=== PATIENT | female | born 1985 | race Caucasian/White ===

== ENCOUNTER 2018-06-05 16:42 | Emergency (ER) | payer SELFPAY ==
[2018-06-05] MEDS ORDERED: NORMAL SALINE 1000 ML 1,000 ML IV ONE (17:17)
[2018-06-05] MEDS ORDERED: IBUPROFEN 600 MG TABLET PO ONE (17:17)
[2018-06-05] MEDS ORDERED: ONDANSETRON 4 MG TAB.RAPDIS PO ONE (17:17)
--- NOTE | 2018-06-05 17:19 | ER Document Report ---
ED Medical Screen (RME) - General Chief Complaint: Nausea/Vomiting Stated Complaint: FEVER Time Seen by Provider: 06/05/18 17:13 Notes: The patient is a 33-year-old female, past medical history prior kidney stones and kidney infections, presents with several days of worsening right flank pain and subjective fevers. She took Tylenol 1 hour prior to arrival. Also is having nausea and vomiting earlier, but this has improved. PE: Tachycardia, right CVA tenderness, suprapubic tenderness (abdominal exam limited in RME chair) I have greeted and performed a rapid initial assessment of this patient. A comprehensive ED assessment and evaluation of the patient, analysis of test results and completion of the medical decision making process will be conducted by additional ED providers. TRAVEL OUTSIDE OF THE [place] IN LAST 30 DAYS: No - Related Data Allergies/Adverse Reactions: iron Allergy (Verified 06/05/18 16:43) Sulfa (Sulfonamide Antibiotics) Allergy (Verified 06/05/18 16:43) tamsulosin [From Flomax] Allergy (Verified 06/05/18 17:16) Past Medical History - Social History Chew tobacco use (# tins/day): No Frequency of alcohol use: None Drug Abuse: None Pulmonary Medical History: Reports: Hx Bronchitis Renal/ Medical History: Reports: Hx Kidney Stones. Denies: Hx Peritoneal Dialysis Past Surgical History: Reports: Hx Abdominal Surgery - EGD X2, Hx Section - x2, Hx Gynecologic Surgery - lap w/LEEP proced, Hx Tubal Ligation Physical Exam - Vital signs Vitals: Temp Pulse Resp BP Pulse Ox 99.8 F 103 H 16 127/68 H 99 06/05/18 16:45 06/05/18 16:45 06/05/18 16:45 06/05/18 16:45 06/05/18 16:45 Course - Vital Signs Vital signs: Temp Pulse Resp BP Pulse Ox 99.8 F 103 H 16 127/68 H 99 06/05/18 16:45 06/05/18 16:45 06/05/18 16:45 06/05/18 16:45 06/05/18 16:45
[2018-06-05 18:25] LABS: ABSOLUTE LYMPHOCYTES (AUTO) 0.7 10^3/uL (0.5-4.7); ABSOLUTE MONOCYTES (AUTO) 1.2 10^3/uL (0.1-1.4); BASOPHILS % (AUTO) 0.1 % (0-2); EOSINOPHILS % (AUTO) 0.2 % (0-6); HEMATOCRIT 35.2 % (36.0-47.0); HEMOGLOBIN 11.9 g/dL (12.0-15.5); LYMPHOCYTES % (AUTO) 5.3 % (13-45); MEAN CORPUSCULAR HEMOGLOBIN 27.3 pg (27.0-33.4); MEAN CORPUSCULAR HGB CONC 33.8 g/dL (32.0-36.0); MEAN CORPUSCULAR VOLUME 81 fl (80-97); MONOCYTES % (AUTO) 9.2 % (3-13); PLATELET COUNT 303 10^3/uL (150-450); RED BLOOD COUNT 4.36 10^6/uL (3.72-5.28); RED CELL DISTRIBUTION WIDTH 14.2 % (11.5-14.0); SEGMENTED NEUTROPHILS % (AUTO) 85.2 % (42-78); TOTAL CELLS COUNTED % (AUTO) 100 %
[2018-06-05 18:43] LABS: ALANINE AMINOTRANSFERASE 42 U/L (9-52); ALBUMIN 3.7 g/dL (3.5-5.0); ALKALINE PHOSPHATASE 114 U/L (38-126); ANION GAP 13 (5-19); ASPARTATE AMINO TRANSFERASE 39 U/L (14-36); BILIRUBIN,DIRECT 0.5 mg/dL (0.0-0.4); BILIRUBIN,TOTAL 0.8 mg/dL (0.2-1.3); BLOOD UREA NITROGEN 9 mg/dL (7-20); CALCIUM 9.2 mg/dL (8.4-10.2); CARBON DIOXIDE 26 mmol/L (22-30); CHLORIDE 104 mmol/L (98-107); GLUCOSE 110 mg/dL (75-110); LIPASE 21.6 U/L (23-300); POTASSIUM 3.8 mmol/L (3.6-5.0); TOTAL PROTEIN 6.6 g/dL (6.3-8.2)
[2018-06-05 18:48] LABS: APPEARANCE,URINE CLOUDY; BILIRUBIN,URINE NEGATIVE (NEGATIVE); COLOR,URINE YELLOW; GLUCOSE, URINE NEGATIVE (NEGATIVE); KETONES,URINE TRACE mg/dL (NEGATIVE); LEUKOCYTE ESTERASE,URINE LARGE (NEGATIVE); NITRITE,URINE POSITIVE (NEGATIVE); PROTEIN,URINE 100 mg/dL (NEGATIVE); URINE SPECIFIC GRAVITY 1.018; UROBILINOGEN,URINE NEGATIVE mg/dL (<2.0)
[2018-06-05] MEDS ORDERED: CEFTRIAXONE 1 GM/D5W RTU 1 GM/50 ML RTUPB IV ONE (19:09)
--- NOTE | 2018-06-05 19:14 | ER Document Report ---
ED General - General Chief Complaint: Nausea/Vomiting Stated Complaint: FEVER Time Seen by Provider: 06/05/18 17:13 Mode of Arrival: Ambulatory Information source: Patient, Relative Notes: 33-year-old female who with endometriosis, Navarro's esophagus, kidney stones presents with complaint of 1 week of right low back pain and 3 days of right flank pain. Patient describes the pain as aching, constant and not relieved with Tylenol. Patient denies dysuria but states that her urine has been foul- smelling and dark. Her last kidney stone was approximately 2 years ago. Patient has had a fever, nausea at home. She reports a T-max of 101. Patient does not currently have a primary care physician because she just moved to the area. TRAVEL OUTSIDE OF THE [place] IN LAST 30 DAYS: No - HPI Onset: Last week Onset/Duration: Gradual, Persistent, Worse Quality of pain: Achy, Throbbing Severity: Moderate Associated symptoms: Body/muscle aches, Fever, Nausea Exacerbated by: Denies Relieved by: Denies Similar symptoms previously: Yes Recently seen / treated by doctor: No - Related Data Allergies/Adverse Reactions: iron Allergy (Verified 06/05/18 16:43) Sulfa (Sulfonamide Antibiotics) Allergy (Verified 06/05/18 16:43) tamsulosin [From Flomax] Allergy (Verified 06/05/18 17:16) Past Medical History - General Information source: Patient, Office - Social History Smoking Status: Never Smoker Chew tobacco use (# tins/day): No Frequency of alcohol use: None Drug Abuse: None Lives with: Family Family History: Reviewed & Not Pertinent Patient has suicidal ideation: No Patient has homicidal ideation: No Pulmonary Medical History: Reports: Hx Bronchitis Renal/ Medical History: Reports: Hx Kidney Stones. Denies: Hx Peritoneal Dialysis Past Surgical History: Reports: Hx Abdominal Surgery - EGD X2, Hx Section - x2, Hx Gynecologic Surgery - lap w/LEEP proced, Hx Tubal Ligation Review of Systems - Review of Systems Constitutional: Fever, Malaise EENT: No symptoms reported Cardiovascular: denies: Chest pain, Palpitations Respiratory: denies: Short of breath Gastrointestinal: Abdominal pain, Nausea, Constipation. denies: Vomiting Genitourinary: Flank pain, Hematuria Female Genitourinary: Last menstrual period - 2014 Musculoskeletal: Back pain Skin: denies: Rash Hematologic/Lymphatic: No symptoms reported Neurological/Psychological: denies: Headaches -: Yes All other systems reviewed and negative Physical Exam - Vital signs Vitals: Temp Pulse Resp BP Pulse Ox 99.8 F 103 H 16 127/68 H 99 06/05/18 16:45 06/05/18 16:45 06/05/18 16:45 06/05/18 16:45 06/05/18 16:45 - Notes Notes: PHYSICAL EXAMINATION: GENERAL: Well-appearing, well-nourished and in no acute distress. HEAD: Atraumatic, normocephalic. EYES: Pupils equal round and reactive to light, extraocular movements intact, conjunctiva are normal. ENT: Nares patent, oropharynx clear without exudates. Moist mucous membranes. NECK: Normal range of motion, supple without lymphadenopathy LUNGS: Breath sounds clear to auscultation bilaterally and equal. No wheezes rales or rhonchi. HEART: Regular rate and rhythm without murmurs ABDOMEN: Soft, nontender, nondistended abdomen. No guarding, no rebound. No masses appreciated. Female : deferred Musculoskeletal: Normal range of motion, no pitting or edema. No cyanosis. Right CVA tenderness NEUROLOGICAL: Cranial nerves grossly intact. Normal speech, normal gait. Normal sensory, motor exams PSYCH: Normal mood, normal affect. SKIN: Warm, Dry, normal turgor, no rashes or lesions noted. Course - Re-evaluation Re-evalutation: Laboratory 06/05/18 06/05/18 06/05/18 17:40 18:12 18:12 WBC 13.0 H RBC 4.36 Hgb 11.9 L Hct 35.2 L MCV 81 MCH 27.3 MCHC 33.8 RDW 14.2 H Plt Count 303 Seg Neutrophils % 85.2 H Lymphocytes % 5.3 L Monocytes % 9.2 Eosinophils % 0.2 Basophils % 0.1 Absolute Neutrophils 11.0 H Absolute Lymphocytes 0.7 Absolute Monocytes 1.2 Absolute Eosinophils 0.0 Absolute Basophils 0.0 Sodium Potassium Chloride Carbon Dioxide Anion Gap BUN Creatinine Est GFR ( Amer) Est GFR (Non-Af Amer) Glucose Calcium Total Bilirubin Direct Bilirubin Neonat Total Bilirubin Neonat Direct Bilirubin Neonat Indirect Bili AST ALT Alkaline Phosphatase Total Protein Albumin Lipase Serum HCG, Qual NEGATIVE Urine Color YELLOW Urine Appearance CLOUDY Urine pH 5.0 Ur Specific [place] 1.018 Urine Protein 100 H Urine Glucose (UA) NEGATIVE Urine Ketones TRACE H Urine Blood NEGATIVE Urine Nitrite POSITIVE H Urine Bilirubin NEGATIVE Urine Urobilinogen NEGATIVE Ur Leukocyte Esterase LARGE H Urine WBC (Auto) >182 Urine RBC (Auto) 12 Urine Bacteria (Auto) 3+ Urine WBC Clumps MANY Squamous Epi Cells Auto 9 Urine Mucus (Auto) MOD Urine Ascorbic Acid 40 H 06/05/18 18:12 WBC RBC Hgb Hct MCV MCH MCHC RDW Plt Count Seg Neutrophils % Lymphocytes % Monocytes % Eosinophils % Basophils % Absolute Neutrophils Absolute Lymphocytes Absolute Monocytes Absolute Eosinophils Absolute Basophils Sodium 143.0 Potassium 3.8 Chloride 104 Carbon Dioxide 26 Anion Gap 13 BUN 9 Creatinine 0.71 Est GFR ( Amer) > 60 Est GFR (Non-Af Amer) > 60 Glucose 110 Calcium 9.2 Total Bilirubin 0.8 Direct Bilirubin 0.5 H Neonat Total Bilirubin Not Reportable Neonat Direct Bilirubin Not Reportable Neonat Indirect Bili Not Reportable AST 39 H ALT 42 Alkaline Phosphatase 114 Total Protein 6.6 Albumin 3.7 Lipase 21.6 L Serum HCG, Qual Urine Color Urine Appearance Urine pH Ur Specific [place] Urine Protein Urine Glucose (UA) Urine Ketones Urine Blood Urine Nitrite Urine Bilirubin Urine Urobilinogen Ur Leukocyte Esterase Urine WBC (Auto) Urine RBC (Auto) Urine Bacteria (Auto) Urine WBC Clumps Squamous Epi Cells Auto Urine Mucus (Auto) Urine Ascorbic Acid 06/05/18 22:55 33-year-old female who with endometriosis, Navarro's esophagus, kidney stones presents with complaint of 1 week of right low back pain and 3 days of right flank pain. Patient describes the pain as aching, constant and not relieved with Tylenol. Patient denies dysuria but states that her urine has been foul- smelling and dark. Her last kidney stone was approximately 2 years ago. Patient has had a fever, nausea at home. She reports a T-max of 101. Patient does not currently have a primary care physician because she just moved to the area. Patient was seen by myself upon arrival. Vital signs were reviewed. Patient is afebrile, normotensive and not hypoxic. Patient does not appear toxic or dehydrated. They are in no acute distress. Previous medical records and nursing notes reviewed. Significant findings include urinalysis significant for urinary tract infection. Patient received IV Rocephin during her ED course. Patient will be discharged home with Nabila and Dariafran. Patient provided the opportunity to ask questions, and express concerns. Discharge instructions discussed. Patient is agreeable with discharge home. Return indications explained and discussed with the patient who displays understanding. Patient encouraged to return to the emergency department immediately with any concerns. 06/05/18 22:56 - Vital Signs Vital signs: Temp Pulse Resp BP Pulse Ox 100.0 F 85 16 120/58 L 98 06/05/18 21:23 06/05/18 21:23 06/05/18 21:23 06/05/18 21:23 06/05/18 21:23 - Laboratory Result Diagrams: 06/05/18 18:12 06/05/18 18:12 Laboratory results interpreted by me: 06/05/18 06/05/18 06/05/18 17:40 18:12 18:12 WBC 13.0 H Hgb 11.9 L Hct 35.2 L RDW 14.2 H Seg Neutrophils % 85.2 H Lymphocytes % 5.3 L Absolute Neutrophils 11.0 H Direct Bilirubin 0.5 H AST 39 H Lipase 21.6 L Urine Protein 100 H Urine Ketones TRACE H Urine Nitrite POSITIVE H Ur Leukocyte Esterase LARGE H Urine Ascorbic Acid 40 H Discharge - Discharge Clinical Impression: Flank pain UTI (urinary tract infection) Qualifiers: Urinary tract infection type: site unspecified Hematuria presence: without hematuria Qualified Code(s): N39.0 - Urinary tract infection, site not specified Condition: Good Disposition: HOME, SELF-CARE Instructions: Urinary Tract Infection ([facility]) Additional Instructions: Follow up with your physician tomorrow for further care or return to the ED IMMEDIATELY if symptoms worsen or new concerns occur. If you cannot afford to follow up with your primary care physician a list of low cost clinics have been provided at the end of your discharge papers as well. Prescriptions: Ciprofloxacin HCl [Cipro 500 mg Tablet] 500 mg PO BID #10 tablet Ondansetron [Zofran Odt 4 mg Tablet] 1 - 2 tab PO Q4H PRN #15 tab.rapdis PRN Reason: For Nausea/Vomiting
[2018-06-05] MEDS ORDERED: CEFTRIAXONE INJ 1000 MG VIAL ONE (20:26)
[2018-06-05] MEDS ORDERED: CEFTRIAXONE INJ 1000 MG VIAL IV ONE (20:28)
[2018-06-05 21:26] VITALS: BP 120/58
== END 2018-06-05 21:23 | disposition home or self-care (01) ==
LOC: ER 16:42
DX: N39.0 Urinary tract infection, site not specified (principal); R11.2 Nausea with vomiting, unspecified; R10.9 Unspecified abdominal pain; R50.9 Fever, unspecified; Z88.2 Allergy status to sulfonamides; Z87.442 Personal history of urinary calculi; Z98.51 Tubal ligation status
CPT/HCPCS: 99284; 96361; 96365; 36415; 83690; 84703; 85025; 80053; 81001; S0119; J0696; J7030

== ENCOUNTER 2019-03-08 09:13 | Day surgery (SDC) | payer OTHER ==
[2019-03-07 10:43] LABS: HEMATOCRIT 39.4 % (36.0-47.0); HEMOGLOBIN 13.3 g/dL (12.0-15.5); MEAN CORPUSCULAR HEMOGLOBIN 27.1 pg (27.0-33.4); MEAN CORPUSCULAR HGB CONC 33.8 g/dL (32.0-36.0); MEAN CORPUSCULAR VOLUME 80 fl (80-97); PLATELET COUNT 276 10^3/uL (150-450); RED BLOOD COUNT 4.91 10^6/uL (3.72-5.28); RED CELL DISTRIBUTION WIDTH 13.6 % (11.5-14.0); WHITE BLOOD COUNT 7.8 10^3/uL (4.0-10.5)
[2019-03-07 11:08] LABS: APPEARANCE,URINE CLEAR; BILIRUBIN,URINE NEGATIVE (NEGATIVE); COLOR,URINE STRAW; GLUCOSE, URINE NEGATIVE (NEGATIVE); KETONES,URINE NEGATIVE (NEGATIVE); LEUKOCYTE ESTERASE,URINE NEGATIVE (NEGATIVE); NITRITE,URINE NEGATIVE (NEGATIVE); PROTEIN,URINE NEGATIVE (NEGATIVE); URINE SPECIFIC GRAVITY 1.006; UROBILINOGEN,URINE NEGATIVE mg/dL (<2.0)
[2019-03-08] MEDS ORDERED: FENTANYL CITRATE INJ/PF 100 MCG/2 ML AMPUL ONE (11:04)
[2019-03-08] MEDS ORDERED: MIDAZOLAM 2 MG/2 ML INJ ONE (11:05)
[2019-03-08] MEDS ORDERED: ACETAMINOPHEN 1,000 MG/100 ML RTUPB IV ONE (11:05)
[2019-03-08] MEDS ORDERED: PROPOFOL INJ 200 MG/20 ML VIAL IV ONE (11:05)
[2019-03-08] MEDS ORDERED: KETOROLAC TROMETHAMINE INJ/PF 30 MG/1 ML SDV IV PRN (11:46)
[2019-03-08] MEDS ORDERED: IBUPROFEN 800 MG TABLET PO PRN (11:46)
[2019-03-08] MEDS ORDERED: RINGERS SOLUTION,LACTATED 1,000 ML IV PRN (11:46)
[2019-03-08] MEDS ORDERED: OXYCODONE-ACETAMINOPHEN 5-325 MG TABLET PO PRN ×2 (11:46)
--- NOTE | 2019-03-08 11:49 | Operative Report ---
Operative Report DATE OF SURGERY: 03/08/19 PREOPERATIVE DIAGNOSIS: Patient has a stenotic cervix and a retained IUD with no visible string. POSTOPERATIVE DIAGNOSIS: Same OPERATION: Cervical dilatation and IUD removal SURGEON: BELKIS MAYFIELD ANESTHESIA: GA TISSUE REMOVED OR ALTERED: Cervix and IUD COMPLICATIONS: None ESTIMATED BLOOD LOSS: None INTRAOPERATIVE FINDINGS: The IUD was in the uterine cavity with the strings bent upwards towards the fundus PROCEDURE: Procedure patient was taken the OR and placed in supine position. General anesthesia was induced. She is placed in dorsolithotomy position using Marcus stirrups. Perineum and vagina were prepared and draped in sterile fashion. A weighted speculum was placed in the vagina and the anterior lip cervix was grasped with a tenaculum. The cervix was dilated enough to allow a stone polyp forceps to be placed in the IUD was removed. The strings were bent in half and directed up towards the fundus of the uterus. At the end of the case all instruments were removed she is brought back from anesthesia and taken to recovery room in stable condition.
--- NOTE | 2019-03-08 11:51 | Discharge Summary ---
Discharge Summary (SDC) - Discharge Final Diagnosis: Strings lost IUD retained and uterus Date of Surgery: 03/08/19 Discharge Date: 03/08/19 Condition: Good Discharge Diet: Regular Discharge Activity: Activity As Tolerated Report the Following to Your Physician Immediately: Fever over 101 Degrees
[2019-03-08] MEDS ORDERED: ONDANSETRON HCL INJ/PF 4 MG/2 ML SDV IV PRN (12:13)
[2019-03-08] MEDS ORDERED: PROMETHAZINE HCL INJ 25 MG/1 ML VIAL IV PRN (12:13)
[2019-03-08] MEDS ORDERED: FENTANYL CITRATE INJ/PF 100 MCG/2 ML AMPUL IV PRN ×3 (12:13)
[2019-03-08] MEDS ORDERED: DIPHENHYDRAMINE HCL 50 MG/ML VIAL IV PRN (12:13)
[2019-03-08 13:10] VITALS: BP 120/76
[2019-03-08] MEDS ORDERED: SUCCINYLCHOLINE CHLORIDE INJ 200 MG/10 ML VIAL ONE (13:52)
== END 2019-03-08 13:09 | disposition home or self-care (01) ==
LOC: OROUT 09:13
PROVIDERS: ATTEND Obstetrics & Gynecology
DX: Z30.432 Encounter for removal of intrauterine contraceptive device (principal); N88.2 Stricture and stenosis of cervix uteri; Z88.2 Allergy status to sulfonamides
CPT/HCPCS: 36415; 85027; 81001; 58301; J2250; J3010; J0330; J2704; J0131; 940